=== PATIENT | female | born 1990 | race Caucasian/White ===

== ENCOUNTER 2023-12-30 01:42 | Emergency (ER) | payer SELFPAY ==
[2023-12-30 02:26] LABS: Hemoglobin 14.8 g/dL (12.0-16.0); Mean Corpuscular HGB CONC 30.8 g/dL (32.0-36.0); Mean Corpuscular Hemoglobin 28.2 pg (27.0-31.0); Mean Corpuscular Volume 91.7 fl (78.0-98.0); Mean Platelet Volume 8.1 fL (7.4-10.4); Platelet Count 346 10x3/uL (130-400); RBC Distribution Width 12.3 % (11.5-14.5); Red Blood Cell (RBC) Count 5.23 mill/uL (4.20-5.40); White Blood Cell (WBC) Count 6.6 10x3/uL (4.8-10.8)
[2023-12-30 02:41] LABS: Band 1 % (5-11); Eosinophils 3 % (0-10); Lymphocytes 33 % (21-51); MDiff Complete? YES; Monocytes 14 % (0-10); Neutrophil 48 % (42-75); Platelet Adequacy Comment Appears Adequate
[2023-12-30 03:12] LABS: Troponin I 0.015 ng/mL (< 0.028)
[2023-12-30 03:31] LABS: ALT (SGPT) 31 U/L (8-55); AST (SGOT) 26 U/L (5-34); Albumin 4.2 g/dL (3.5-5.0); Alkaline Phosphatase 89 U/L (40-110); Anion Gap 18 mmol/L (10-20); BUN (Urea Nitrogen) 9 mg/dL (7.0-18.7); Bilirubin, Total 0.3 mg/dL (0.2-1.2); Calc. Creatinine Clearance 0 mL/min (70-130); Calcium 9.6 mg/dL (7.8-10.44); Carbon Dioxide 18 mmol/L (22-29); Chloride 104 mmol/L (98-107); Estimated GFR 105; Globulin 3.8 g/dL (2.4-3.5); Glucose 123 mg/dL (70-105); Potassium 3.4 mmol/L (3.5-5.1); Sodium 137 mmol/L (136-145)
== END 2023-12-30 04:02 | disposition home or self-care (01) ==
LOC: MADERS 01:42
DX: R06.00 Dyspnea, unspecified (principal); B34.9 Viral infection, unspecified; I10 Essential (primary) hypertension; Z79.899 Other long term (current) drug therapy
CPT/HCPCS: 71045; 80053; 84484; 85025

== ENCOUNTER 2024-01-06 17:05 | Emergency (ER) | payer BC, SELFPAY ==
[2024-01-06] MEDS ORDERED: Lorazepam 1 MG TAB ONE (17:56)
[2024-01-06 18:16] LABS: BHCG - Serum Negative (NEGATIVE); Pregs Control Background? CLEAR/WHITE (CLR/WHITE); Pregs Control Bar Appear? YES (CONTROL BAR)
[2024-01-06 18:17] LABS: #Basophils 0.1 thou/uL (0.0-0.2); #Lymphocytes 2.1 thou/uL (1.20-3.40); #Monocytes 0.6 thou/uL (0.11-0.59); #Neutrophils 7.6 thou/uL (1.40-6.50); %Basophils 0.7 % (0.0-1.0); %Eosinophils 0.4 % (0.0-10.0); %Lymphocytes 20.4 % (21.0-51.0); %Monocytes 5.5 % (0.0-10.0); %Neutrophils 73.1 % (42.0-75.0); Hematocrit 38.2 % (36.0-47.0); Mean Corpuscular HGB CONC 31.5 g/dL (32.0-36.0); Mean Corpuscular Hemoglobin 28.9 pg (27.0-31.0); Mean Corpuscular Volume 91.8 fl (78.0-98.0); Mean Platelet Volume 7.7 fL (7.4-10.4); Platelet Count 346 10x3/uL (130-400); RBC Distribution Width 12.9 % (11.5-14.5); Red Blood Cell (RBC) Count 4.16 mill/uL (4.20-5.40); White Blood Cell (WBC) Count 10.4 10x3/uL (4.8-10.8)
[2024-01-06 18:25] LABS: ALT (SGPT) 38 U/L (8-55); AST (SGOT) 35 U/L (5-34); Albumin 3.5 g/dL (3.5-5.0); Alkaline Phosphatase 55 U/L (40-110); Anion Gap 17 mmol/L (10-20); BUN (Urea Nitrogen) 8 mg/dL (7.0-18.7); Bilirubin, Total 0.2 mg/dL (0.2-1.2); Calc. Creatinine Clearance 0 mL/min (70-130); Calcium 8.6 mg/dL (7.8-10.44); Carbon Dioxide 21 mmol/L (22-29); Chloride 106 mmol/L (98-107); Estimated GFR 112; Globulin 2.8 g/dL (2.4-3.5); Glucose 124 mg/dL (70-105); Magnesium 1.8 mg/dL (1.6-2.6); Potassium 2.9 mmol/L (3.5-5.1); Protein, Total 6.3 g/dL (6.0-8.3); Sodium 141 mmol/L (136-145)
[2024-01-06] MEDS ORDERED: Potassium Chloride 20 MEQ TAB ONE (18:57)
[2024-01-06] MEDS ORDERED: Potassium Chloride 20 MEQ (100 mL) BAG ONE (18:58)
[2024-01-06 20:56] LABS: Lactic Acid 1.9 mmol/L (0.5-2.2)
== END 2024-01-06 21:23 | disposition home or self-care (01) ==
LOC: MADERS 17:05
DX: E87.6 Hypokalemia (principal); M62.838 Other muscle spasm; I10 Essential (primary) hypertension
CPT/HCPCS: 36415; 71045; 80053; 83605; 83735; 84443; 84703; 85025; 93005; 96365; 96366; J3480

== ENCOUNTER 2024-02-17 11:43 | Emergency (ER) | payer BC, SELFPAY ==
[2024-02-17] MEDS ORDERED: Acetaminophen 500 MG TAB ONE (12:32)
[2024-02-17] MEDS ORDERED: Lidocaine 1% (PF) 30 ML VIAL ONE (12:32)
[2024-02-17] MEDS ORDERED: Bacitracin 1 PK ONE (12:32)
[2024-02-17] MEDS ORDERED: Lidocaine 1% PF 5 ML VIAL ONE (12:33)
== END 2024-02-17 13:48 | disposition home or self-care (01) ==
LOC: MADERS 11:43
DX: S61.212A Laceration without foreign body of right middle finger without damage to nail, initial encounter (principal); I10 Essential (primary) hypertension; W25.XXXA Contact with sharp glass, initial encounter; Y92.000 Kitchen of unspecified non-institutional (private) residence as the place of occurrence of the external cause
CPT/HCPCS: 12001; J2001

== ENCOUNTER 2024-07-20 07:42 | Emergency (ER) | payer OTHER, SELFPAY | END 2024-07-20 09:15 | disposition home or self-care (01) | LOC: MADERS 07:42 | DX: S92.424A Nondisplaced fracture of distal phalanx of right great toe, initial encounter for closed fracture (principal); S00.12XA Contusion of left eyelid and periocular area, initial encounter; S00.83XA Contusion of other part of head, initial encounter; S09.90XA Unspecified injury of head, initial encounter; I10 Essential (primary) hypertension; W22.8XXA Striking against or struck by other objects, initial encounter | CPT/HCPCS: 70450; 70486 ==

== ENCOUNTER 2025-05-19 21:32 | Emergency (ER) | payer OTHER ==
[2025-05-19 22:22] LABS: #Basophils 0.1 thou/uL (0.0-0.2); #Eosinophils 0.2 thou/uL (0.0-0.7); #Lymphocytes 3.3 thou/uL (1.20-3.40); #Monocytes 0.6 thou/uL (0.11-0.59); #Neutrophils 5.8 thou/uL (1.40-6.50); %Basophils 0.9 % (0.0-1.0); %Eosinophils 2.4 % (0.0-10.0); %Lymphocytes 32.8 % (21.0-51.0); %Monocytes 6.3 % (0.0-10.0); %Neutrophils 57.7 % (42.0-75.0); Hematocrit 37.1 % (36.0-47.0); Hemoglobin 11.6 g/dL (12.0-16.0); Mean Corpuscular Hemoglobin 28.9 pg (27.0-31.0); Mean Corpuscular Volume 92.8 fl (78.0-98.0); Platelet Count 482 10x3/uL (130-400); Red Blood Cell (RBC) Count 4.00 mill/uL (4.20-5.40); White Blood Cell (WBC) Count 10.1 10x3/uL (4.8-10.8)
[2025-05-19 22:32] LABS: INR-International Normal Ratio 0.9; PTT 31.6 sec (22.9-36.1); Prothrombin Time 12.2 sec (12.0-14.7)
[2025-05-19 22:42] LABS: ALT (SGPT) 14 U/L (Less than 34); AST (SGOT) 27 U/L (11-34); Albumin 3.5 g/dL (3.1-4.5); Alkaline Phosphatase 87 U/L (40-110); Anion Gap 17 mmol/L (10-20); BUN (Urea Nitrogen) 13 mg/dL (7.0-18.7); Bilirubin, Total 0.2 mg/dL (0.3-1.2); Calc. Creatinine Clearance 0 mL/min (70-130); Calcium 9.0 mg/dL (7.8-10.44); Carbon Dioxide 22 mmol/L (22-29); Chloride 110 mmol/L (98-107); Globulin 3.4 g/dL (2.4-3.5); Glucose 96 mg/dL (70-105); Potassium 4.0 mmol/L (3.5-5.1); Sodium 145 mmol/L (136-145)
[2025-05-19 22:55] LABS: CAUTI Indications for Culture Pelvic or flank pain; Glucose, Urine (Dipstick) Negative (Negative); Leukocyte Small (Negative); Protein, Urine (Dipstick) Negative (Neg-Trace); RBC/HPF 21-50 HPF (0-3); Specific Gravity, Urine 1.020 (1.005-1.030)
[2025-05-19 22:56] LABS: Bacteria/HPF Rare-Few HPF (None Seen); Urine Culture Reflex No No
== END 2025-05-19 23:41 | disposition home or self-care (01) ==
LOC: MADERS 21:32
DX: R51.9 Headache, unspecified (principal); I10 Essential (primary) hypertension; Z79.899 Other long term (current) drug therapy
CPT/HCPCS: 80053; 81001; 85025; 85610; 85730